=== PATIENT | male | born 1955 | race African-American/Black ===

== ENCOUNTER 2018-10-10 18:15 | Inpatient (IN) | payer MEDICAID ==
[2018-10-10] MEDS ORDERED: [UNRECOGNIZED DRUG - REMARK] (18:21)
[2018-10-10] MEDS ORDERED: BP MED (18:21)
[2018-10-10] MEDS ORDERED: XARELTO10 MG PO ×2 (18:21→19:59)
[2018-10-10] MEDS ORDERED: NORVASC5 MG PO (18:21)
[2018-10-10 18:46] LABS: BASOPHILS 0.6 % (0-2); EOSINOPHILS 1.9 % (0-7); HEMATOCRIT 37.7 % (42.0-54.0); IMMATURE GRANULOCYTES 0.3 % (0-5); LYMPHOCYTES 21.4 % (15-50); MCH 31.8 pg (26.0-34.0); MCHC 34.5 g/dL (31.0-37.0); MCV 92.2 fL (80.0-100.0); MEAN PLATELET VOLUME 9.1 fL (7.4-10.4); MONOCYTES 11.2 % (2-11); NEUTROPHILS 64.6 % (40-80); PLATELET COUNT 178 10x3/uL (130-400); RBC 4.09 10x6/uL (4.20-6.10); RDW 12.2 % (11.5-14.5); WBC 6.9 10x3/uL (4.8-10.8)
[2018-10-10 18:57] LABS: APTT 32.8 SECONDS (22.8-39.4); INR 1.09 (0.85-1.17); PROTIME 13.6 SECONDS (11.6-15.0)
[2018-10-10 19:04] LABS: ALBUMIN 3.3 g/dL (3.4-5.0); ALKALINE PHOSPHATASE 66 U/L (46-116); ALT (SGPT) 30 U/L (10-68); BILIRUBIN - TOTAL 0.27 mg/dL (0.2-1.3); CALC OSMOLALITY 271 mosm/kg (275-300); CALCIUM 9.4 mg/dL (8.5-10.1); CARBON DIOXIDE 25.6 mmol/L (21.0-32.0); CHLORIDE - SERUM 101 mmol/L (98-107); GLUCOSE 92 mg/dL (74-106); POTASSIUM - SERUM 4.2 mmol/L (3.5-5.1); PROTEIN - SERUM 7.3 g/dL (6.4-8.2); SODIUM 136 mmol/L (136-145); UREA NITROGEN 12 mg/dL (7-18); eGFR NON AFRICAN AMERICAN 80 mL/min (90-120)
[2018-10-10 19:30] LABS: CREATINE KINASE 105 UL (21-232); MAGNESIUM - SERUM 1.5 mg/dL (1.8-2.4)
[2018-10-10 19:34] LABS: TROPONIN-I < 0.017 ng/mL (0.000-0.060)
[2018-10-10 19:45] VITALS: BP 111/80
[2018-10-10] MEDS ORDERED: NORVASC10 MG PO (19:58)
[2018-10-10] MEDS ORDERED: PROVENTIL/2.5 MG/3 M INH (20:04)
[2018-10-10 20:45] VITALS: BP 162/78
[2018-10-10 20:51] LABS: AMYLASE - SERUM 48 U/L (25-115); LIPASE 104 U/L (73-393)
[2018-10-10 21:45] VITALS: BP 173/83
[2018-10-10 22:45] VITALS: BP 136/100
[2018-10-10 23:45] VITALS: BP 145/100
[2018-10-11 03:57] VITALS: BP 151/97; BMI 28.8
[2018-10-11 08:02] LABS: BASOPHILS 0.4 % (0-2); HEMATOCRIT 39.5 % (42.0-54.0); HEMOGLOBIN 13.7 g/dL (13.5-17.5); IMMATURE GRANULOCYTES 0.4 % (0-5); LYMPHOCYTES 16.4 % (15-50); MCH 31.9 pg (26.0-34.0); MCHC 34.7 g/dL (31.0-37.0); MCV 91.9 fL (80.0-100.0); MEAN PLATELET VOLUME 9.2 fL (7.4-10.4); MONOCYTES 9.1 % (2-11); NEUTROPHILS 72.7 % (40-80); PLATELET COUNT 169 10x3/uL (130-400); RDW 12.2 % (11.5-14.5)
[2018-10-11 08:26] LABS: % SATURATION 28 % (15-55); IRON 97 ug/dl (35-150); TOTAL IRON BIND CAPACITY 346 ug/dl (260-445); UNSAT IRON BIND CAPACITY 249 ug/dl (150-375)
[2018-10-11 08:27] LABS: ALBUMIN 3.4 g/dL (3.4-5.0); ANION GAP 13.5 mmol/L (8-16); BILIRUBIN - TOTAL 0.61 mg/dL (0.2-1.3); CALCIUM 9.2 mg/dL (8.5-10.1); CARBON DIOXIDE 26.7 mmol/L (21.0-32.0); CREATININE - SERUM 1.1 mg/dL (0.6-1.3); POTASSIUM - SERUM 4.2 mmol/L (3.5-5.1); PROTEIN - SERUM 7.4 g/dL (6.4-8.2)
[2018-10-11 08:28] LABS: MAGNESIUM - SERUM 1.1 mg/dL (1.8-2.4)
[2018-10-11 08:48] VITALS: BP 145/84
[2018-10-11 12:25] VITALS: BP 150/91
[2018-10-11] MEDS ORDERED: OMEPRAZOLE20 M1 PO (14:51)
[2018-10-11] MEDS ORDERED: K-TAB10 MEQ PO (14:52)
[2018-10-11] MEDS ORDERED: FUROSEMIDE20 MG PO (14:52)
[2018-10-11 15:26] VITALS: BMI 28.8
[2018-10-11 15:59] VITALS: BP 145/97
[2018-10-11 20:44] VITALS: BP 126/99
[2018-10-12 00:54] VITALS: BP 132/84
[2018-10-12 04:00] VITALS: BP 153/96
[2018-10-12 04:52] LABS: INR 1.09 (0.85-1.17); PROTIME 13.6 SECONDS (11.6-15.0)
[2018-10-12 05:11] LABS: ALBUMIN 3.4 g/dL (3.4-5.0); ANION GAP 13.1 mmol/L (8-16); BILIRUBIN - TOTAL 0.76 mg/dL (0.2-1.3); CALCIUM 8.8 mg/dL (8.5-10.1); CREATININE - SERUM 1.1 mg/dL (0.6-1.3); POTASSIUM - SERUM 4.1 mmol/L (3.5-5.1); PROTEIN - SERUM 7.4 g/dL (6.4-8.2)
[2018-10-12] MEDS ORDERED: FLOMAX0.4 MG PO (06:47)
[2018-10-12] MEDS ORDERED: METOPROLOL TART50 MG PO (06:47)
[2018-10-12 07:58] VITALS: BP 142/90
[2018-10-12 08:48] LABS: APPEARANCE CLEAR (CLEAR); COLOR DARK YELLOW (YELLOW); NITRITE NEGATIVE (NEGATIVE); SPECIFIC GRAVITY 1.025 (1.005-1.020)
[2018-10-12 08:49] LABS: BILIRUBIN NEGATIVE (NEGATIVE); GLUCOSE NEGATIVE (NEGATIVE); KETONE NEGATIVE (NEGATIVE); PROTEIN 2+ mg/dL (NEGATIVE); UROBILINOGEN NORMAL (NORMAL)
[2018-10-12 08:56] LABS: BACTERIA FEW /hpf (NONE SEEN); EPITHELIAL CELLS 0-5 /hpf (0-5); RED CELLS - URINE 0-5 /hpf (0-5); WHITE CELLS - URINE 0-5 /hpf (0-5)
[2018-10-12 11:22] VITALS: BP 127/77
[2018-10-12 16:10] VITALS: BP 130/71
--- NOTE | 2018-10-12 16:37 | MORECARE ---
CASE MANAGEMENT DISCHARGE SUMMARY PATIENT: KAIT HUNTER UNIT: [id number] ADM DATE: 10/11/18 AGE: 63 : 57 SEX: M ROOM/BED: D.2103 AUTHOR: MERLE DE LEON PHYSICIAN: REFERRING PHYSICIAN: SHERRON GIBBS MD DATE OF SERVICE: 10/12/18 Discharge Plan Patient Name: KAIT HUNTER [facility] [facility] 1955 Planned Disposition: Home Anticipated Discharge Date: Discharge Date: Expected LOS: Initial Reviewer: [email or web address] Initial Review Date: 10/11/2018 Generated: 10/12/18 5:37 pm DCPIA - Discharge Planning Initial Assessment Updated by [email or web address]: Meseret Brizuela on 10/12/18 4:35 pm * Is the patient Alert and Oriented? Yes * How many steps to enter\exit or inside your home? NONE * PCP RAYNE MCMAHAN APN - [facility] * Pharmacy [facility] IN [facility] * Preadmission Environment Home Alone * ADLs Independent * Equipment CPAP Nebulizer Oxygen * Other Equipment [facility] IS PROVIDER FOR PORTABLE AND STATIONARY OXYGEN UNITS, NEBULIZER, CPAP, WEARS OXYGEN DAY AND NIGHT * List name and contact numbers for known caregivers / representatives who currently or will assist patient after discharge: CECELIA IRIZARRY- AUNT- [phone] SHE IS PRESENTLY AT THE BEDSIDE HAS OTHER FAMILY TO ASSIST * Verbal permission to speak to the caregivers and representatives has been obtained from the patient. Yes * Community resources currently utilized None * Please name any agencies selected above. N/A * Additional services required to return to the preadmission environment? Yes * Can the patient safely return to the preadmission environment? Yes * Has this patient been hospitalized within the prior 30 days at any hospital? Yes Patient Name: KAIT HUNTER Page [id number] at 1637 All edits/amendments must be made on the electronic document DICTATION DATE: 10/12/18 1636 LEAD GENERATION SPECIALIST: RICHIE 10/12/18 1636 RPT#: [id number] DC DATE: STATUS: ADM IN [facility] [address] [id number] END OF REPORT
--- NOTE | 2018-10-12 17:00 | MORECARE ---
CASE MANAGEMENT DISCHARGE SUMMARY PATIENT: KAIT HUNTER UNIT: [id number] ADM DATE: 10/11/18 AGE: 63 : 57 SEX: M ROOM/BED: D.2103 AUTHOR: MOISES,DOC PHYSICIAN: REFERRING PHYSICIAN: SHERRON GIBBS MD DATE OF SERVICE: 10/12/18 Discharge Plan Patient Name: KAIT HUNTER Facility: [facility]:[place] : 1955 Planned Disposition: Home Anticipated Discharge Date: Discharge Date: Expected LOS: Initial Reviewer: [email or web address] Initial Review Date: 10/11/2018 Generated: 10/12/18 6:00 pm Comments DCP- Discharge Planning Updated by [id number]: Meseret Brizuela on 10/12/18 3:[address] CM MET WITH THE PATIENT AND HIS AUNT, CECELIA IRIZARRY, AT THE BEDSIDE, HE AND HIS AUNT WERE IN [place] LOOKING FOR A PLACE TO HAVE A FAMILY REUNION. HE HAS HAD A HOSPITALIZATION WITHIN THE LAST [address] [facility] IN [place], [place] DISCUSSED CASE MANAGEMENT AND MY ROLE. HE GAVE PERMISSION TO CONTINUE WITH THE INITIAL ASSESSMENT AND TO DISCUSS W/ HIS AUNT BEING PRESENT. HE LIVES ALONE BUT HAS FAMILY TO ASSIST. DOES NOT USE ANY HOME HEALTH OR COMMUNITY SERVICES. DOES NOT FEEL HE NEEDS THEM. MAY DISCUSS AGAIN PRIOR TO DISCHARGE. HE LIVES IN A HOUSE AND HAS ONE STEP UP INTO THE HOME. HE IS A BUT DOES NOT USE ANY VA SERVICES. PCP- RAYNE CAST AT THE [facility]- [facility]- [facility]- HAS OXYGEN PORTABLE AND STATIONARY UNIT, CPAP, NEBULIZER CM ADVISED THE PATIENT CM IS AVAILABLE TO ASSIST WITH DISCHARGE NEEDS. WILL FOLLOW TO ASSIST NEEDED. PATIENT IS A LITTLE ANXIOUS HE REPORTS HE FEELS SHORT OF BREATH. HAD A UPDRAFT TREATMENT EARLIER TODAY. CM ADVISED HIS NURSE. SHE CALLED TO SPEAK WITH RESPIRATORY. LEASING SPECIALIST ALSO CALLED. DCPIA - Discharge Planning Initial Assessment Updated by [id number]: Meseret Brizuela on 10/12/18 4:35 pm * Is the patient Alert and Oriented? Yes * How many steps to enter\exit or inside your home? NONE * PCP RAYNE CAST- TALENT ACQUISITION COORDINATOR - [facility] * Pharmacy [facility] * Preadmission Environment Home Alone * ADLs Independent * Equipment CPAP Nebulizer Oxygen * Other Equipment [facility] IS PROVIDER FOR PORTABLE AND STATIONARY OXYGEN UNITS, NEBULIZER, CPAP, WEARS OXYGEN DAY AND NIGHT * List name and contact numbers for known caregivers / representatives who currently or will assist patient after discharge: CECELIA IRIZARRY- AUNT- [phone] SHE IS PRESENTLY AT THE BEDSIDE HAS OTHER FAMILY TO ASSIST * Verbal permission to speak to the caregivers and representatives has been obtained from the patient. Yes * Community resources currently utilized None * Please name any agencies selected above. N/A * Additional services required to return to the preadmission environment? Yes * Can the patient safely return to the preadmission environment? Yes * Has this patient been hospitalized within the prior 30 days at any hospital? Yes Last DP export: 10/12/18 3:37 p Patient Name: KAIT HUNTER Page [id number] at 1700 All edits/amendments must be made on the electronic document DICTATION DATE: 10/12/181658 DYNAMIC BALANCER SET UP WORKER: RICHIE 10/12/181658 RPT#: [id number] DC DATE: STATUS: ADM IN [facility] [address] [place] [address] END OF REPORT
[2018-10-12 20:00] VITALS: BP 149/89
[2018-10-13] VITALS: BP 122/77
[2018-10-13 04:00] VITALS: BP 139/94
[2018-10-13 05:10] LABS: ALBUMIN 2.8 g/dL (3.4-5.0); ALKALINE PHOSPHATASE 60 U/L (46-116); ALT (SGPT) 28 U/L (10-68); BILIRUBIN - TOTAL 0.59 mg/dL (0.2-1.3); CALC OSMOLALITY 275 mosm/kg (275-300); CALCIUM 8.5 mg/dL (8.5-10.1); CARBON DIOXIDE 26.5 mmol/L (21.0-32.0); CHLORIDE - SERUM 102 mmol/L (98-107); CREATININE - SERUM 0.9 mg/dL (0.6-1.3); GLUCOSE 102 mg/dL (74-106); POTASSIUM - SERUM 3.8 mmol/L (3.5-5.1); PROTEIN - SERUM 6.2 g/dL (6.4-8.2); SODIUM 139 mmol/L (136-145); eGFR NON AFRICAN AMERICAN > 90 mL/min (90-120)
[2018-10-13 05:14] LABS: UREA NITROGEN 6 mg/dL (7-18)
[2018-10-13 05:58] LABS: BASOPHILS 0.2 % (0-2); EOSINOPHILS 1.9 % (0-7); HEMATOCRIT 35.1 % (42.0-54.0); LYMPHOCYTES 19.9 % (15-50); MCH 31.3 pg (26.0-34.0); MCHC 34.2 g/dL (31.0-37.0); MCV 91.4 fL (80.0-100.0); MEAN PLATELET VOLUME 8.9 fL (7.4-10.4); MONOCYTES 13.1 % (2-11); NEUTROPHILS 64.9 % (40-80); PLATELET COUNT 142 10x3/uL (130-400); RBC 3.84 10x6/uL (4.20-6.10); RDW 12.2 % (11.5-14.5)
[2018-10-13 06:17] LABS: WBC 4.8 10x3/uL (4.8-10.8)
[2018-10-13 07:53] VITALS: BP 145/75
[2018-10-13 11:19] VITALS: BP 120/66
[2018-10-13 14:46] VITALS: BP 138/97
[2018-10-13 20:00] VITALS: BP 144/80
[2018-10-14 00:59] VITALS: BP 154/93
[2018-10-14 05:48] LABS: BASOPHILS 0.5 % (0-2); EOSINOPHILS 1.5 % (0-7); HEMATOCRIT 38.6 % (42.0-54.0); HEMOGLOBIN 13.2 g/dL (13.5-17.5); IMMATURE GRANULOCYTES 0.3 % (0-5); LYMPHOCYTES 18.1 % (15-50); MCH 31.4 pg (26.0-34.0); MCHC 34.2 g/dL (31.0-37.0); MCV 91.9 fL (80.0-100.0); MEAN PLATELET VOLUME 10.3 fL (7.4-10.4); MONOCYTES 11.7 % (2-11); NEUTROPHILS 67.9 % (40-80); RDW 12.4 % (11.5-14.5)
[2018-10-14 05:49] VITALS: BP 148/85
[2018-10-14 05:57] LABS: PLATELET COUNT 171 10x3/uL (130-400)
[2018-10-14 06:18] LABS: ANION GAP 16.1 mmol/L (8-16); BILIRUBIN - TOTAL 0.4 mg/dL (0.2-1.3); CALCIUM 8.6 mg/dL (8.5-10.1); CARBON DIOXIDE 27.5 mmol/L (21.0-32.0); POTASSIUM - SERUM 3.6 mmol/L (3.5-5.1); PROTEIN - SERUM 7.7 g/dL (6.4-8.2)
[2018-10-14 06:22] LABS: ALBUMIN 3.9 g/dL (3.4-5.0); CREATININE - SERUM 1.3 mg/dL (0.6-1.3)
[2018-10-14 11:00] LABS: FOLATE (FOLIC ACID) - SERUM >20.0 ng/mL (>3.0)
[2018-10-14] MEDS ORDERED: MULTI-DAY VITAM1 TAB PO (12:00)
[2018-10-14] MEDS ORDERED: FOLIC ACID1 MG PO (12:00)
[2018-10-14] MEDS ORDERED: CARAFATE1 G PO (12:01)
[2018-10-14] MEDS ORDERED: PEPCID AC20 MG PO (12:01)
--- NOTE | 2018-10-15 08:04 | MORECARE ---
CASE MANAGEMENT DISCHARGE SUMMARY PATIENT: KAIT HUNTER UNIT: [id number] ADM DATE: 10/11/18 AGE: 63 : 57 SEX: M ROOM/BED: D.2103 AUTHOR: MIOSES,DOC PHYSICIAN: REFERRING PHYSICIAN: SHERRON GIBBS MD DATE OF SERVICE: 10/15/18 Discharge Plan Patient Name: KAIT HUNTER [facility]:[place] : 1955 Planned Disposition: Home Anticipated Discharge Date: 10/14/18 Discharge Date: 10/14/2018 Expected LOS: 3 Initial Reviewer: [email or web address] Initial Review Date: 10/11/2018 Generated: 10/15/18 9:03 am Comments DCP- Discharge Planning Updated by [email or web address]: Meseret Brizuela on 10/12/18 3:[address] CM MET WITH THE PATIENT AND HIS AUNT, CECELIA IRIZARRY, AT THE BEDSIDE, HE AND HIS AUNT WERE IN [place] LOOKING FOR A PLACE TO HAVE A FAMILY REUNION. HE HAS HAD A HOSPITALIZATION WITHIN THE LAST 30 DAYS AT [facility] IN [place], [place]. DISCUSSED CASE MANAGEMENT AND MY ROLE. HE GAVE PERMISSION TO CONTINUE WITH THE INITIAL ASSESSMENT AND TO DISCUSS W/ HIS AUNT BEING PRESENT. HE LIVES ALONE BUT HAS FAMILY TO ASSIST. DOES NOT USE ANY HOME HEALTH OR COMMUNITY SERVICES. DOES NOT FEEL HE NEEDS THEM. MAY DISCUSS AGAIN PRIOR TO DISCHARGE. HE LIVES IN A HOUSE AND HAS ONE STEP UP INTO THE HOME. HE IS A BUT DOES NOT USE ANY VA SERVICES. PCP- RAYNE CAST AT THE [facility]- [facility]- [facility]- HAS OXYGEN PORTABLE AND STATIONARY UNIT, CPAP, NEBULIZER CM ADVISED THE PATIENT CM IS AVAILABLE TO ASSIST WITH DISCHARGE NEEDS. WILL FOLLOW TO ASSIST NEEDED. PATIENT IS A LITTLE ANXIOUS HE REPORTS HE FEELS SHORT OF BREATH. HAD A UPDRAFT TREATMENT EARLIER TODAY. CM ADVISED HIS NURSE. SHE CALLED TO SPEAK WITH RESPIRATORY. HVAC SERVICE TECHNICIAN ALSO CALLED. DCPIA - Discharge Planning Initial Assessment Updated by [id number]: Meseret Brizuela on 10/12/18 4:35 pm * Is the patient Alert and Oriented? Yes * How many steps to enter\exit or inside your home? NONE * PCP RAYNE MCMAHAN APN - [facility] * Pharmacy [facility] * Preadmission Environment Home Alone * ADLs Independent * Equipment CPAP Nebulizer Oxygen * Other Equipment [facility] IS PROVIDER FOR PORTABLE AND STATIONARY OXYGEN UNITS, NEBULIZER, CPAP, WEARS OXYGEN DAY AND NIGHT * List name and contact numbers for known caregivers / representatives who currently or will assist patient after discharge: CECELIA IRIZARRY- AUNT- [phone] SHE IS PRESENTLY AT THE BEDSIDE HAS OTHER FAMILY TO ASSIST * Verbal permission to speak to the caregivers and representatives has been obtained from the patient. Yes * Community resources currently utilized None * Please name any agencies selected above. N/A * Additional services required to return to the preadmission environment? Yes * Can the patient safely return to the preadmission environment? Yes * Has this patient been hospitalized within the prior 30 days at any hospital? Yes Last DP export: 10/12/18 4:00 p Patient Name: KAIT HUNTER Page [id number] at 0804 All edits/amendments must be made on the electronic document DICTATION DATE: 10/15/18802 MANAGER CODE: DM 10/15/18802 RPT#: [id number] DC DATE:10/14/18 STATUS: DIS IN [facility] [address] [place] [address] END OF REPORT
== END 2018-10-14 14:30 | disposition home or self-care (01) | DRG 392 ==
LOC: D.ER 18:15 → D.M2 10-11 00:21
PROVIDERS: Emergency Medicine; Internal Medicine Gastroenterology; ADMIT Internal Medicine Nephrology
PROC: 0DB68ZX Excision of Stomach, Via Natural or Artificial Opening Endoscopic, Diagnostic (ICD-10-PCS; 2018-10-14)
PROC: 0DB58ZX Excision of Esophagus, Via Natural or Artificial Opening Endoscopic, Diagnostic (ICD-10-PCS; 2018-10-14)
PROC: 0DB98ZX Excision of Duodenum, Via Natural or Artificial Opening Endoscopic, Diagnostic (ICD-10-PCS; principal; 2018-10-14 07:12)
DX: K21.0 Gastro-esophageal reflux disease with esophagitis (principal); F17.213 Nicotine dependence, cigarettes, with withdrawal; J96.11 Chronic respiratory failure with hypoxia; D50.9 Iron deficiency anemia, unspecified; K29.00 Acute gastritis without bleeding; K29.80 Duodenitis without bleeding; K70.10 Alcoholic hepatitis without ascites; J44.9 Chronic obstructive pulmonary disease, unspecified; E83.42 Hypomagnesemia; I10 Essential (primary) hypertension; I48.91 Unspecified atrial fibrillation; F10.10 Alcohol abuse, uncomplicated; N40.0 Benign prostatic hyperplasia without lower urinary tract symptoms